=== PATIENT | female | born 1995 | race American Indian/Alaskan Native ===

== ENCOUNTER 2020-05-15 05:43 | Emergency (ER) | payer SELFPAY ==
[2020-05-15 06:22] VITALS: BP 123/81
[2020-05-15 06:56] LABS: Bilirubin,Urine NEG (Negative); Blood,Urine LG (Negative); Color,Urine Yellow (Yellow); Mucus,Urine 3+ /HPF; Urobilinogen,Urine < 2.0 mg/dL (<2.0)
[2020-05-15 06:57] LABS: HCG Qualitative,Urine Negative (Negative); RBC,Urine > 182.0 /HPF (0.0-6.0)
[2020-05-15] MEDS ORDERED: LIDOCAINE JELLY (2%) 5 ML TOPICAL TP ONE (08:01)
--- NOTE | 2020-05-15 08:06 | Emergency Department Report ---
HPI - General Chief Complaint: Rectal Pain Time Seen by Provider: 05/15/20 07:47 - HPI HPI: Room 42 The patient is a 24-year-old female presenting with a chief complaint of rectal pain. The patient states she has had a constant rectal pain for the past 5 days. Patient denies nausea vomiting or abdominal pain. Patient states she has not had a bowel movements since the onset of this pain and that is not unusual as she has bowel movements infrequently. Patient denies bright red blood per rectum. Patient denies fever nausea or vomiting. Patient denies any known trauma to the rectum. The patient is currently on her cycle ED Past Medical Hx - Past Medical History Previous Medical History?: No - Surgical History Past Surgical History?: No - Family History Family history: no significant - Social History Smoking Status: Never Smoker Substance Use Type: None (Denies illicit drug use) - Medications Home Medications: Home Medications Medication Instructions Recorded Confirmed Last Taken Type Ferrous Gluconate [Fergon 325 MG 325 mg PO TID #20 tablet 08/13/15 Unknown Rx tab] Nitrofurantoin [place]/M-Cryst 100 mg PO Q12HR #14 capsule 08/13/15 Unknown Rx [Macrobid CAP] Docusate Sodium [Colace] 100 mg PO BID #60 capsule 05/15/20 Unknown Rx HYDROcodone/APAP 5-325 [[place] 1 - 2 each PO Q6HR PRN #14 tablet 05/15/20 Unknown Rx 5/325] Hydrocortisone [Anusol-Hc 2.5% TOP 1 applicatio RC BID #30 gm 05/15/20 Unknown Rx CREAM] ED Review of Systems ROS: Stated complaint: RECTUM PAIN Other details as noted in HPI Constitutional: denies: fever Eyes: denies: eye pain ENT: denies: throat pain Respiratory: no symptoms reported Cardiovascular: denies: chest pain Endocrine: no symptoms reported Gastrointestinal: other (Rectal pain). denies: abdominal pain, nausea, vomiting Musculoskeletal: denies: back pain Neurological: denies: headache Physical Exam - Physical Exam Vital Signs: Vital Signs 05/15/20 06:13 Temperature 98.1 F Pulse Rate 78 Respiratory 16 Rate Blood Pressure 123/81 O2 Sat by Pulse 100 Oximetry Physical Exam: GENERAL: The patient is well-developed well-nourished female lying on stretcher not appearing to be in acute distress. [] HEENT: Normocephalic. Atraumatic. Extraocular motions are intact. Patient has moist mucous membranes. NECK: Supple. Trachea midline CHEST/LUNGS: Clear to auscultation. There is no respiratory distress noted. HEART/CARDIOVASCULAR: Regular. There is no tachycardia. There is no gallop rub or murmur. ABDOMEN: Abdomen is soft, nontender. Patient has normal bowel sounds. There is no abdominal distention. SKIN: There is no rash. There is no edema. There is no diaphoresis. NEURO: The patient is awake, alert, and oriented. The patient is cooperative. The patient has no focal neurologic deficits. The patient has normal speech MUSCULOSKELETAL: There is no evidence of acute injury. RECTAL: External hemorrhoid present. Nonthrombosed ED Course Vital Signs 05/15/20 06:13 Temperature 98.1 F Pulse Rate 78 Respiratory 16 Rate Blood Pressure 123/81 O2 Sat by Pulse 100 Oximetry ED Medical Decision Making - Lab Data Laboratory Tests 05/15/20 Unknown Urine Color Yellow Urine Turbidity Hazy Urine pH 5.0 Ur Specific [place] 1.023 Urine Protein 30 mg/dl Urine Glucose (UA) Neg Urine Ketones Neg Urine Blood Lg Urine Nitrite Neg Urine Bilirubin Neg Urine Urobilinogen < 2.0 Ur Leukocyte Esterase Neg Urine WBC (Auto) 5.0 Urine RBC (Auto) > 182.0 U Epithel Cells (Auto) 4.0 Urine Mucus 3+ Urine HCG, Qual Negative - Differential Diagnosis Hemorrhoid, anal fissure Critical care attestation.: If time is entered above; I have spent that time in minutes in the direct care of this critically ill patient, excluding procedure time. ED Disposition Clinical Impression: External hemorrhoid Disposition: [id number] TO HOME OR SELFCARE Is pt being admited?: No Does the pt Need Aspirin: No Condition: Stable Instructions: Hemorrhoids, [id number] Additional Instructions: Return to the emergency department should you develop worsening symptoms, inability to tolerate food or liquids, high fever or any other concerns Prescriptions: Hydrocortisone [Anusol-Hc 2.5% TOP CREAM] 1 applicatio RC BID #30 gm Docusate Sodium [Colace] 100 mg PO BID #60 capsule HYDROcodone/APAP 5-325 [[place] 5/325] 1 - 2 each PO Q6HR PRN #14 tablet PRN Reason: Pain Referrals: PRIMARY CARE, [Primary Care Provider] - 3-5 Days JOSE GOMEZ MD [Staff Physician] - 3-5 Days (Dr. Gomez is a fine arts model. Please follow-up with him for further evaluation) Time of Disposition: 08:09
== END 2020-05-15 08:25 | disposition home or self-care (01) ==
LOC: ED 05:43
DX: K64.4 Residual hemorrhoidal skin tags (principal); Z79.899 Other long term (current) drug therapy
CPT/HCPCS: 81001; 81025; 99283